=== PATIENT | male | born 1945 | race Caucasian/White ===

== ENCOUNTER → 2021-04-16 | Day surgery (SDC) | payer OTHER ==
[~2021-04-16] MED LIST: BUPIVACAINE MPF 0.25% 10 ML VIAL. ONE; CALCIUM PO; FISH OIL PO; IOHEXOL 300 MG/ML 50 ML VIAL. ONE; LIDOCAINE 1% PF 30 ML VIAL. ONE; LOSA50TA86 PO; METO25TA2 PO; TRAMADOL PO; methylPREDNISolone ACETATE 40 MG/ML VIAL. ONE
[2021-04-16 13:54] VITALS: BP 147/80
== END | disposition home or self-care (01) ==
LOC: SURG 12:33
PROVIDERS: ATTEND Anesthesiology
DX: M16.11 Unilateral primary osteoarthritis, right hip (principal); I10 Essential (primary) hypertension; M51.36 Other intervertebral disc degeneration, lumbar region; M47.816 Spondylosis without myelopathy or radiculopathy, lumbar region; M79.10 Myalgia, unspecified site; Z79.899 Other long term (current) drug therapy; Z79.82 Long term (current) use of aspirin; Z88.6 Allergy status to analgesic agent; Z88.8 Allergy status to other drugs, medicaments and biological substances
CPT/HCPCS: 20610; 77002; A4209; A4657; A4930; J1030; J3490; Q9967